=== PATIENT | female | born 1945 | race Two or more races ===

== ENCOUNTER 2024-04-23 18:05 | Emergency (ER) | payer MEDICARE, MEDICAID ==
[~2024-04-23] VITALS: Ht 162.6 cm; Wt 56.1 kg
[2024-04-23 18:23] VITALS: BP 131/52; PULSE 101; RESP 15; TEMP 97.5; O2SAT 94
--- NOTE | 2024-04-23 18:51 | ED.PDOC ---
GI ASSESSMENT HPI Comments * 78 y/o F is [id number] daughter for c/o non-radiating periumbilical abdominal pain, nausea, vomiting, and diarrhea, today * Pain is reported to have been ongoing, intermittently, for 1 month. * Patient also reports on having diarrhea 3 times a day for the past 4 days, which she describes it as being "yellow" in appearance. * Today, patient states on pain worsening, with additional onset of nausea and vomiting. * She describes vomitus as being "watery" in appearance. Vitals: Temperature: 97.5F Respiratory rate: 15 SpO2: 94% Pulse rate: 101 Blood pressure: 131/52 PMHx: HTN, HLD, gastritis, levoscoliosis, benign mass in breast PSHx: hysterectomy, bunion removal surgery HPI: Poor Historian. 78-year-old female presents to emergency department for evaluation of one month history periumbilical pain that is intermittent nonradiating in nature. Pain got worse today and is constant and is associated for the 1st time with nausea and vomiting nonbilious nonbloody. She also has been having few day history of yellow color diarrhea. Denies any other acute symptoms. REVIEW OF SYSTEMS: CONSTITUTIONAL: Denies acute: fever, diaphoresis, chills, HEAD: Denies acute: headache, photophobia Eyes: Denies acute: Double vision, vision loss, eye pain, eye discharge. EARS: Denies acute: tinnitus, hearing loss, ear discharge, ear pain, THROAT: Denies acute: sore throat, swelling, difficulty swallowing , pain with swallowing, change in voice. NECK: Denies acute: neck pain, neck swelling, stiff neck. HEART: Denies acute : chest pain, palpitations, LUNGS: Denies acute: SOB, wheezing, cough, hemoptysis ABDOMEN: Denies acute: melena , hematemesis, hematochezia SKIN: Denies acute: rash, redness, lesions, itchiness. EXTREMITIES: Denies acute: calf pain, numbness, tingling, weakness, denies pain in extremity. Denies acute: Low back pain. Neuro: Denies acute: focal neurological deficit, motor or sensory focal neurological deficit, tremors, seizure like activity, confusion, dizziness, change in mental status, loss of bowel or bladder function, cauda equina like symptoms. : Denies acute: dysuria, hematuria, flank pain, increase in urinary frequency. PSYCH: Denies acute: hallucination, suicidal ideation, homicidal ideation. FEMALE: Denies acute: abnormal vaginal bleeding, foul odor, unusual discharge. PHYSICAL EXAM: General: no acute distress, awake and alert. Head: normocephalic, atraumatic. Neck: supple, trachea is midline, no swelling. Throat: Normal phonation. Eyes:, no erythema, no purulent discharge, no proptosis, no icterus. Heart: regular rate, regular rhythm, no significant murmur appreciated. Lungs: no apparent respiratory distress, Able to speak in full sentences. No wheezing, no rhonchi, no crackles. No stridors Clear to auscultation bilaterally. Abdomen: Periumbilical tender to palpation, non distended, soft, no guarding, no rebound, + bowel sounds. No lower quadrant tenderness to palpation. Neuro: Awake, Alert, oriented to name, self, situation, follows commands GCS=15. Speech is normal. Skin: no petechia, no purpura, no cyanosis, non-pale, not jaundice. Lower extremities: --no - Pitting edema no deformity, no focal swelling, no calf TTP. Makes eye contact. moves all four extremities. Face: no apparent facial droop. Ambulating in the ED independently. ED COURSE: Chief Complaint: Abdominal Pain Time Seen by MD: 18:40 Reviewed Notes: Nurses Notes, Medications, Allergies Allergies: Coded Allergies: NO KNOWN ALLERGIES (Unverified , 04/23/24) Information Source: Patient, Relative (Child) Mode of Arrival: Ambulatory Timing: Months Prehospital treatment: None Was a procedure done? Was a procedure done?: No GI differential Dx Differential Diagnosis: Other (DDX include Diverticulitis, colitis, gastroenteritis, acute abdomen, SBO, enteritis, constipation, volvulus, appendicitis, Gallbladder disease, choledocolithiasis, ascending cholangitis, pancreatitis, intraAbdominal mass/neoplasm, hepatitis, UTI, pylonephritis, kidney stone, aneurysm, dissection, Inflammatory bowel disease, gastroparesis, ischemic bowel, ovarian torsion, ovarian cyst/mass, tubo-ovarian abscess, PID, STD.) X-Ray, Labs, Meds, VS Vital Signs Date Time Temp Pulse Resp B/P (MAP) Pulse Ox O2 Delivery O2 Flow Rate FiO2 04/23/24 18:23 97.5 101 15 131/52 (78) 94 97.5 Lab Test 04/23/24 21:56 04/23/24 19:49 04/23/24 18:45 Range/Units Troponin I High Sensitivity 5 5 5 </=34 ng/L White Blood Count 9.7 4.4-10.8 10^3/uL Red Blood Count 4.77 4.0-5.20 10^6/uL Hemoglobin 14.4 12.2-16.2 g/dL Hematocrit 43.5 36.0-46.0 % Mean Corpuscular Volume 91.2 80.0-100.0 fL Mean Corpuscular Hemoglobin 30.2 28.0-32.0 pg Mean Corpuscular Hemoglobin Concent 33.1 32.0-36.0 g/dL Red Cell Distribution Width 14.7 H 11.8-14.3 % Platelet Count 265 140-450 10^3/uL Mean Platelet Volume 9.9 6.9-10.8 fL Neutrophils (%) (Auto) 56.2 37.0-80.0 % Lymphocytes (%) (Auto) 32.9 10.0-50.0 % Monocytes (%) (Auto) 8.3 0.0-12.0 % Eosinophils (%) (Auto) 1.8 0.0-7.0 % Basophils (%) (Auto) 0.8 0.0-2.0 % Neutrophils # (Auto) 5.4 1.6-8.6 10 ^3/uL Lymphocytes # (Auto) 3.2 0.4-5.4 10 ^3/uL Monocytes # (Auto) 0.8 0-1.3 10 ^3/uL Eosinophils # (Auto) 0.2 0-0.8 10 ^3/uL Basophils # (Auto) 0.1 0-0.2 10 ^3/uL Nucleated Red Blood Cells 0.1 % Sodium Level 145 136-145 mmol/L Potassium Level 5.0 3.5-5.1 mmol/L Chloride Level 110 H 98-107 mmol/L Carbon Dioxide Level 28 20-31 mmol/L Anion Gap 7 5-15 Blood Urea Nitrogen 18 9-23 mg/dL Creatinine 0.94 0.550-1.02 mg/dL Glomerular Filtration Rate Calc 62 >90 mL/min BUN/Creatinine Ratio 19.1 10.0-20.0 Serum Glucose 113 H 74-106 mg/dL Lactic Acid Level 1.6 0.4-2.0 mmol/L Calcium Level 10.7 H 8.7-10.4 mg/dL Total Bilirubin 0.5 0.2-1.0 mg/dL Aspartate Amino Transferase (AST) 13 13-40 U/L Alanine Aminotransferase (ALT) 16 7-40 U/L Alkaline Phosphatase 143 H 46-116 U/L Total Protein 7.1 5.7-8.2 g/dL Albumin 4.6 3.2-4.8 g/dL Lipase 33 12-53 U/L [place] [address] Ph: [phone] DIAGNOSTIC IMAGING Diagnostic Imaging Report : [id number] Signed PATIENT: CHASE COOK ACCT: [id number] UNIT: [id number] : 1945 LOC: ER ROOM / BED: / AGE / SEX: 78 / F ADM STATUS: REG ER SERVICE 07 ORDERING PHYSICIAN: HAROON LEHMAN DO PROCEDURE(s): ABPL - CT AB PEL WO CON-NO ORAL OR IV REASON: abd pain ORDER NUMBER(s): [id number], ACCESSION NUMBER(s): [id number] Procedure: CT CT AB PEL WO CON-NO ORAL OR IV 04/23/2024 06:09 PM Indication: abd pain Comparison Study: None Technique: Axial images were obtained and reformatted in coronal and sagittal planes. All CT scans at this medical facility are performed using dose modulation techniques as appropriate to a performed exam including the following: Automated exposure control was utilized; adjustment of the MA and/or KV according to patient size; and use of iterative reconstruction technique. CT Dose: CTDI volume is 5.12 mGy. Dose-length product is 272.47 mGy*cm FINDINGS: Lower Chest: Unremarkable. Hepatobiliary: Slightly nodular liver contour. Spleen: Unremarkable. Pancreas: Unremarkable. Adrenal Glands: Unremarkable. tract: The kidneys are normal in size bilaterally without hydronephrosis. Several subcentimeter nonobstructing bilateral renal calculi are seen measuring up to 4 mm. The urinary bladder is unremarkable. GI tract: The stomach is grossly normal in appearance. Nondistended fluid filled small bowel loops are noted in the lower abdomen. No transition point seen. The large bowel is unremarkable. The appendix is not visualized. No inflammatory change is noted in the right lower quadrant. Lymphatics: No mesenteric, retroperitoneal or periportal lymphadenopathy. Vasculature: The abdominal aorta is normal in caliber. Diffuse calcified plaque formation is noted. Pelvic Organs: Unremarkable Bones/soft tissues: No acute abnormality. Degenerative changes of the lumbar spine noted. Small fat-containing umbilical hernia. Other: None. IMPRESSION: 1. Nondistended fluid-filled small bowel loops in the lower abdomen without transition point likely reflecting ileus or enteritis. No evidence of perforation. No signs of colitis. 2. Subcentimeter nonobstructing bilateral renal calculi. 3. Cirrhotic liver morphology. ATED BY: JESSA AZUL MD DICTATED DATE/TIME: 04/23/241909 SIGNED BY: JESSA AZUL MD SIGNED DATE/TIME: 04/23/241909 CC: Time of 1ST Reevaluation: 18:40 Reevaluation 1ST: Unchanged Patient Education/Counseling: Diagnosis, Treatment Family Education/Counseling: Other Comments Patient presented with the above HPI. Abdominal pain workup was initiated. patient was found with the above mentioned diagnosis. the following medications were ordered: please refer to order lists of meds and tests obtained by myself Dr. Lehman. Patient ED course and VS have been stabilized. Patient has been observed in the ED adequate length of time to insure improvement/stability. Escalation of care considered: Consideration of escalation to observation or admission Patient decided to leave against medical advice. UA is still pending. Patient did not wait even to receive any of the medications that were ordered for her in the ED course. All the reports of any imaging studies that were ordered by myself were reviewed by myself. Departure 1 Departure Time of Disposition: 01:15 Impression: Primary Impression: Abdominal pain Additional Impressions: Nausea vomiting and diarrhea Liver cirrhosis Left against medical advice Disposition: 07 LEFT AGAINST MEDICAL ADVICE Condition: Stable Additional Instructions: You are leaving against medical advice. Please return to the emergency department if you change your mind. Seek medical attention WILLI. Below is a copy of your CT scan report to follow up with your doctor. [address] [address] Ph: [phone] DIAGNOSTIC IMAGING Diagnostic Imaging Report : [id number] Signed PATIENT: CHASE COOK ACCT: [id number] UNIT: [id number] : 1945 LOC: ER ROOM / BED: / AGE / SEX: 78 / F ADM STATUS: REG ER SERVICE 07 ORDERING PHYSICIAN: HAROON LEHMAN DO PROCEDURE(s): ABPL - CT AB PEL WO CON-NO ORAL OR IV REASON: abd pain ORDER NUMBER(s): [id number], ACCESSION NUMBER(s): [id number] Procedure: CT CT AB PEL WO CON-NO ORAL OR IV 04/23/2024 06:09 PM Indication: abd pain Comparison Study: None Technique: Axial images were obtained and reformatted in coronal and sagittal planes. All CT scans at this medical facility are performed using dose modulation techniques as appropriate to a performed exam including the following: Automated exposure control was utilized; adjustment of the MA and/or KV according to patient size; and use of iterative reconstruction technique. CT Dose: CTDI volume is 5.12 mGy. Dose-length product is 272.47 mGy*cm FINDINGS: Lower Chest: Unremarkable. Hepatobiliary: Slightly nodular liver contour. Spleen: Unremarkable. Pancreas: Unremarkable. Adrenal Glands: Unremarkable. tract: The kidneys are normal in size bilaterally without hydronephrosis. Several subcentimeter nonobstructing bilateral renal calculi are seen measuring up to 4 mm. The urinary bladder is unremarkable. GI tract: The stomach is grossly normal in appearance. Nondistended fluid filled small bowel loops are noted in the lower abdomen. No transition point seen. The large bowel is unremarkable. The appendix is not visualized. No inflammatory change is noted in the right lower quadrant. Lymphatics: No mesenteric, retroperitoneal or periportal lymphadenopathy. Vasculature: The abdominal aorta is normal in caliber. Diffuse calcified plaque formation is noted. Pelvic Organs: Unremarkable Bones/soft tissues: No acute abnormality. Degenerative changes of the lumbar spine noted. Small fat-containing umbilical hernia. Other: None. IMPRESSION: 1. Nondistended fluid-filled small bowel loops in the lower abdomen without transition point likely reflecting ileus or enteritis. No evidence of perforation. No signs of colitis. 2. Subcentimeter nonobstructing bilateral renal calculi. 3. Cirrhotic liver morphology. ATED BY: JESSA AZUL MD DICTATED DATE/TIME: 04/23/241909 SIGNED BY: JESSA AZUL MD SIGNED DATE/TIME: 04/23/241909 CC: Discharged With: Self, Relative Critical Care Note Critical Care Time?: No Stability Stability form required: No I personally scribed for HAROON LEHMAN DO ([email or web address]) on 04/23/24 at 18:51. Electronically submitted by Moshe Avila ([email or web address]). I personally scribed for HAROON LEHMAN DO ([email or web address]) on 04/23/24 at 19:23. Electronically submitted by Moshe Avila ([email or web address]). HAROON LEHMAN DO Apr 23, 2024 18:51
[2024-04-23 19:00] LABS: Basophils # (auto) 0.1 10 ^3/uL (0-0.2); Basophils % (auto) 0.8 % (0.0-2.0); Eosinophils # (auto) 0.2 10 ^3/uL (0-0.8); Eosinophils % (auto) 1.8 % (0.0-7.0); Hematocrit 43.5 % (36.0-46.0); Hemoglobin 14.4 g/dL (12.2-16.2); Lymphocytes # (auto) 3.2 10 ^3/uL (0.4-5.4); Lymphocytes % (auto) 32.9 % (10.0-50.0); Mean Corpuscular Hemoglobin 30.2 pg (28.0-32.0); Mean Corpuscular Hgb Conc. 33.1 g/dL (32.0-36.0); Mean Corpuscular Volume 91.2 fL (80.0-100.0); Monocytes # (auto) 0.8 10 ^3/uL (0-1.3); Monocytes % (auto) 8.3 % (0.0-12.0); Neutrophils # (auto) 5.4 10 ^3/uL (1.6-8.6); Neutrophils % (auto) 56.2 % (37.0-80.0); Nucleated Red Blood Cells % 0.1 %; Platelet Count (auto) 265 10^3/uL (140-450); Red Blood Cells 4.77 10^6/uL (4.0-5.20); Red Cell Distribution Width 14.7 % (11.8-14.3); White Blood Cell 9.7 10^3/uL (4.4-10.8)
--- NOTE | 2024-04-23 19:12 | DVH ---
Procedure: CT CT AB PEL WO CON-NO ORAL OR IV 04/23/2024 06:09 PM Indication: abd pain Comparison Study: None Technique: Axial images were obtained and reformatted in coronal and sagittal planes. All CT scans at this medical facility are performed using dose modulation techniques as appropriate to a performed e xam including the following: Automated exposure control was utilized; adjustment of the MA and/or KV according to patient size; and use of iterative reconstruction technique. CT Dose: CTDI volume is 5.1 2 mGy. Dose-length product is 272.47 mGy*cm FINDINGS: Lower Chest: Unremarkable. Hepatobiliary: Slightly nodular liver contour. Spleen: Unremarkable. Pancreas: Unremarkable. Adrenal Glands: Unremarkable. tract: The kidneys are normal in size bilaterally without hydronephrosis. Several subcentimeter no nobstructing bilateral renal calculi are seen measuring up to 4 mm. The urinary bladder is unremarkab le. GI tract: The stomach is grossly normal in appearance. Nondistended fluid filled small bowel loops ar e noted in the lower abdomen. No transition point seen. The large bowel is unremarkable. The append ix is not visualized. No inflammatory change is noted in the right lower quadrant. Lymphatics: No mesenteric, retroperitoneal or periportal lymphadenopathy. Vasculature: The abdominal aorta is normal in caliber. Diffuse calcified plaque formation is noted. Pelvic Organs: Unremarkable Bones/soft tissues: No acute abnormality. Degenerative changes of the lumbar spine noted. Small fat-c ontaining umbilical hernia. Other: None. IMPRESSION: 1. Nondistended fluid-filled small bowel loops in the lower abdomen without transition point likely r eflecting ileus or enteritis. No evidence of perforation. No signs of colitis. 2. Subcentimeter nonobstructing bilateral renal calculi. 3. Cirrhotic liver morphology.
[2024-04-23 19:15] LABS: Alanine Aminotransferase 16 U/L (7-40); Albumin 4.6 g/dL (3.2-4.8); Anion Gap 7 (5-15); Aspartate Aminotransferase 13 U/L (13-40); BUN/Creatinine Ratio 19.1 (10.0-20.0); Blood Urea Nitrogen 18 mg/dL (9-23); Carbon Dioxide 28 mmol/L (20-31); Lipase 33 U/L (12-53); Sodium 145 mmol/L (136-145); Total Protein 7.1 g/dL (5.7-8.2)
[2024-04-23 19:16] LABS: Bilirubin, Total 0.5 mg/dL (0.2-1.0)
[2024-04-23 19:24] LABS: Alkaline Phosphatase 143 U/L (46-116); Calcium 10.7 mg/dL (8.7-10.4); Chloride 110 mmol/L (98-107); Glucose 113 mg/dL (74-106)
[2024-04-23] MEDS ORDERED: ONDANSETRON HCL 4 MG/2 ML VIAL IV ONE (20:15)
[2024-04-23] MEDS ORDERED: SODIUM CHLORIDE 0.9% 1,000 ML IV ONE (20:15)
== END 2024-04-24 01:20 | disposition left against medical advice (07) ==
LOC: ER 18:05
DX: K74.60 Unspecified cirrhosis of liver (principal); R10.33 Periumbilical pain; E78.5 Hyperlipidemia, unspecified; I10 Essential (primary) hypertension; Z87.19 Personal history of other diseases of the digestive system
CPT/HCPCS: 36415; 74176; 80053; 83605; 83690; 84484; 85025

== ENCOUNTER 2024-05-21 09:42 | Emergency (ER) | payer OTHER, MEDICAID ==
[~2024-05-21] VITALS: Ht 160 cm; Wt 60.3 kg
--- NOTE | 2024-05-21 09:52 | ECG ---
[facility] Test Date: 2024-05-21 Test Time: 09:48:05 Pat Name: CHASE COOK Department: ED Room: Gender: F Breakdown Worker: [id number] : 1945 Requested By: IGOR MALAGON Order Number: [id number] Reading MD: Nolberto Coy Measurements Intervals [place] Rate: 75 P: 64 ND: 172 QRS: 21 QRSD: 85 T: 83 QT: 413 QTc: 462 Interpretive Statements Sinus rhythm Multiple ventricular premature complexes Abnormal R-wave progression, early transition Nonspecific T abnormalities, lateral leads Baseline wander in lead(s) I,II,III,aVR,aVF Electronically Signed On 05-23-2024 21:00:19 PDT by Nolberto Coy Please click the below link to view image of tracing.
--- NOTE | 2024-05-21 10:07 | ED.PDOC ---
GI ASSESSMENT HPI Comments 78 y.o female presents to the ED via EMS for a chief complaint of diffused abdominal pain associated with nausea and vomiting only after eating x 2 months. Patient reports multiple visits to hospitals and PCP's office for complaint but states all she gets is medication which does not relieve pain. Patient reports pain is constant, has not improved nor worsened and has no alleviating factors. Per EMS, daughter on scene reported patient has decreased appetite for the past 3 days, concerning her prompting to call 911 today. No diarrhea, fever, chills, rectal bleeding, dysuria or hematuria. Chief Complaint: Abdominal Pain Time Seen by MD: 09:50 Primary Care Provider: unknown Reviewed Notes: Nurses Notes, Senior Java Architect Notes, Medications, Allergies Allergies: Coded Allergies: Cephalexin (Verified Allergy, Unknown, 05/21/24) Hydrocodone (Verified Allergy, Unknown, 05/21/24) Information Source: Patient, Emergency Med Personnel Mode of Arrival: EMS Timing: Months (2) Duration: Since onset Quality: Aching Vomitus: Food Particles Stool: Normal Severity: Moderate Recent: None Recent Hx of: None Pain Location: Diffuse Modifying Factors: Nothing Associated sign and symptoms: Nausea, Vomiting, Abdominal Pain Past Medical History PAST MEDICAL HISTORY: Liver Surgical History: Denies all surgeries PRODUCTION AIDE History: No Pertinent PRODUCTION AIDE History Family History Family History: Reviewed,noncontributory to illness Social History Smoker: Cigarettes Alcohol: Denies ETOH Use Drugs: Denies Drug Use Lives In: Home Constitutional: denies: chills, diaphoresis, fatigue, fever, malaise, sweats, weakness, others EENTM: denies: blurred vision, double vision, ear bleeding, ear discharge, ear drainage, ear pain, ear ringing, eye pain, eye redness, hearing loss, mouth pain, mouth swelling, nasal discharge, nose bleeding, nose congestion, nose pain, photophobia, tearing, throat pain, throat swelling, voice changes, others Respiratory: denies: cough, hemoptysis, orthopnea, SOB at rest, shortness of breath, SOB with excertion, stridor, wheezing, others Cardiovascular: denies: chest pain, dizzy spells, diaphoresis, Dyspnea on exertion, edema, irregular heart beat, left arm pain, lightheadedness, palpitations, PND, syncope, others Gastrointestinal: reports: abdominal pain, nausea, poor appetite, vomiting; denies: abdomen distended, blood streaked bowels, constipated, diarrhea, dysphagia, difficulty swallowing, hematemesis, melena, poor fluid intake, rectal bleeding, rectal pain, others Genitourinary: denies: abnormal vagina bleeding, burning, dyspareunia, dysuria, flank pain, frequency, hematuria, incontinence, pain, , vagina discharge, urgency, others Neurological: denies: dizziness, fainting, headache, left sided numbness, left sided weakness, numbness, paresthesia, pre-existing deficit, right sided numbne ss, right sided weakness, seizure, speech problems, tingling, tremors, weakness, others Musculoskeletal: denies: back pain, gout, joint pain, joint swelling, muscle pain, muscle stiffness, neck pain, others Integumetry: denies: bruises, change in color, change in hair/nails, dryness, laceration, lesions, lumps, rash, wounds, others Allergic/Immunocompromised: denies: Difficulty Healing, Frequent Infections, Hives, Itching, others Hematologic/Lymphatic: denies: anemia, blood clots, easy bleeding, easy bruising, swollen glands, others Endocrine: denies: excessive hunger, excessive sweating, excessive thirst, excessive urination, flushing, intolerance to cold, intolerance to heat, unexplained weight gain, unexplained weight loss, others Psychiatric: denies: anxiety, bipolar disorder, depression, hopeless, panic disorder, schizophrenia, sleepless, suicidal, others All Other Systems: Reviewed and Negative Physical Exam General Appearance: No Apparent Distress, Normal HEENT: NOT DONE Neck: Normal Inspection Respiratory: No Respiratory Distress, Normal Breath Sounds Cardiovascular: Normal Peripheral Pulses, Regular Rate/Rhythm Breast Exam: Deferred Gastrointestinal: Soft Genitalia: Deferred Pelvic: Deferred Rectal: Deferred Extremities: Normal inspection Neurologic: Alert, Normal Affect, Normal Mood Cerebellar Function: Normal Reflexes: NOT DONE Skin: Dry, Normal Color Lymphatic: NOT DONE Was a procedure done? Was a procedure done?: No GI differential Dx Differential Diagnosis: Esophagitis, Gastritis/PUD, Gastroenteritis, Inflammatory BD, Pancreatitis X-Ray, Labs, Meds, VS Vital Signs Date Time Temp Pulse Resp B/P (MAP) Pulse Ox O2 Delivery O2 Flow Rate FiO2 05/21/24 09:52 98.4 78 16 143/56 (85) 95 98.4 05/21/24 09:48 75 Time of 1ST Reevaluation: 10:02 Reevaluation 1ST: Unchanged Patient Education/Counseling: Diagnosis, Treatment, Prognosis Family Education/Counseling: No Family Present Critical Care Note Critical Care Time?: No Stability Stability form required: No I personally scribed for IGOR MALAGON MD ([email or web address]) on 05/21/24 at 10:07. Electronically submitted by Colleen Wells ([email or web address]). IGOR MALAGON MD May 21, 2024 10:07
[2024-05-21 10:26] LABS: Basophils # (auto) 0.1 10 ^3/uL (0-0.2); Basophils % (auto) 0.7 % (0.0-2.0); Eosinophils # (auto) 0.2 10 ^3/uL (0-0.8); Eosinophils % (auto) 2.1 % (0.0-7.0); Hematocrit 40.7 % (36.0-46.0); Hemoglobin 13.6 g/dL (12.2-16.2); Lymphocytes % (auto) 23.4 % (10.0-50.0); Mean Corpuscular Hemoglobin 30.4 pg (28.0-32.0); Mean Corpuscular Hgb Conc. 33.3 g/dL (32.0-36.0); Mean Corpuscular Volume 91.3 fL (80.0-100.0); Monocytes # (auto) 0.7 10 ^3/uL (0-1.3); Monocytes % (auto) 7.8 % (0.0-12.0); Neutrophils # (auto) 5.7 10 ^3/uL (1.6-8.6); Nucleated Red Blood Cells % 0.1 %; Platelet Count (auto) 300 10^3/uL (140-450); Red Blood Cells 4.46 10^6/uL (4.0-5.20); Red Cell Distribution Width 14.6 % (11.8-14.3); White Blood Cell 8.7 10^3/uL (4.4-10.8)
[2024-05-21 10:31] LABS: Sodium 140 mmol/L (136-145)
[2024-05-21 10:32] LABS: Anion Gap 8 (5-15); Carbon Dioxide 25 mmol/L (20-31)
[2024-05-21 10:33] LABS: Calcium 9.8 mg/dL (8.7-10.4)
[2024-05-21 10:37] LABS: BUN/Creatinine Ratio 18.8 (10.0-20.0); Blood Urea Nitrogen 13 mg/dL (9-23)
[2024-05-21 10:38] LABS: Chloride 107 mmol/L (98-107); Glucose 113 mg/dL (74-106)
[2024-05-21] MEDS: IOHEXOL 300 MG/ML 100ML BOTTLE IJ ONE (12:32)
[2024-05-21 13:23] VITALS: BP 100/62; PULSE 74; RESP 14; TEMP 98.8; O2SAT 93
== END 2024-05-21 13:19 | disposition left against medical advice (07) ==
LOC: EDBD 09:42 → ER 09:42
DX: R10.84 Generalized abdominal pain (principal); R11.2 Nausea with vomiting, unspecified; F17.210 Nicotine dependence, cigarettes, uncomplicated; Z88.5 Allergy status to narcotic agent; Z88.1 Allergy status to other antibiotic agents; Z79.899 Other long term (current) drug therapy
CPT/HCPCS: 36415; 80048; 82947; 84484; 85025; 93005; 99284; Q9967; 82962

== ENCOUNTER 2024-08-06 14:00 | Inpatient (IN) | payer OTHER, MEDICAID ==
[~2024-08-06] VITALS: Ht 172.7 cm; Wt 50.8 kg
--- NOTE | 2024-08-06 14:23 | ED.PDOC ---
GI ASSESSMENT HPI Comments 78 y.o female BIB daughter, presents to the ED for a chief complaint of diffused abdominal pain associated with nausea, vomiting and no appetite. Daughter reports patient has had pain for about 7 years, has been seen multiple times at different hospitals and with PCP, states took her to urgent care today but was sent to the ED for further evaluation. Patient states now pain is worse, rating a 10/10 on the pain scale and has not eaten in 2 days. Patient was recently diagnosed with liver cirrhosis. Patient has had nausea and vomiting x2-3 days with no hematemesis. Patient denies any other symptoms or pain. Patient is a tobacco smoker but denies any substance or alcohol use. Time Seen by MD: 14:20 Primary Care Provider: unknown Reviewed Notes: Nurses Notes, Medications, Allergies Allergies: Coded Allergies: Cephalexin (Verified Allergy, Unknown, 05/21/24) Hydrocodone (Verified Allergy, Unknown, 05/21/24) Information Source: Patient, Relative Mode of Arrival: Wheelchair Timing: Came on: Gradually Duration: Since onset Quality: Sharp Vomitus: Soft Stool: Normal Severity: Moderate Recent: None Recent Hx of: None Pain Location: Diffuse Modifying Factors: Nothing Associated sign and symptoms: Nausea, Vomiting, Abdominal Pain Past Medical History PAST MEDICAL HISTORY: High Lipids, HTN, Liver Surgical History (Other): left foot 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 History Family History Family History: Reviewed,noncontributory to illness Social History Smoker: Cigarettes Alcohol: Denies ETOH Use Drugs: Denies Drug Use Lives In: Home Constitutional: denies: chills, diaphoresis, fatigue, fever, malaise, sweats, weakness, others EENTM: denies: blurred vision, double vision, ear bleeding, ear discharge, ear drainage, ear pain, ear ringing, eye pain, eye redness, hearing loss, mouth pain, mouth swelling, nasal discharge, nose bleeding, nose congestion, nose pain, photophobia, tearing, throat pain, throat swelling, voice changes, others Respiratory: denies: cough, hemoptysis, orthopnea, SOB at rest, shortness of breath, SOB with excertion, stridor, wheezing, others Cardiovascular: denies: chest pain, dizzy spells, diaphoresis, Dyspnea on exertion, edema, irregular heart beat, left arm pain, lightheadedness, palpitations, PND, syncope, others Gastrointestinal: reports: abdominal pain, nausea, poor appetite, vomiting; denies: abdomen distended, blood streaked bowels, constipated, diarrhea, dysphagia, difficulty swallowing, hematemesis, melena, poor fluid intake, rectal bleeding, rectal pain, others Genitourinary: denies: abnormal vagina bleeding, burning, dyspareunia, dysuria, flank pain, frequency, hematuria, incontinence, pain, , vagina discharge, urgency, others Neurological: denies: dizziness, fainting, headache, left sided numbness, left sided weakness, numbness, paresthesia, pre-existing deficit, right sided numbness, right sided weakness, seizure, speech problems, tingling, tremors, weakness, others Musculoskeletal: denies: back pain, gout, joint pain, joint swelling, muscle pain, muscle stiffness, neck pain, others Integumetry: denies: bruises, change in color, change in hair/nails, dryness, laceration, lesions, lumps, rash, wounds, others Allergic/Immunocompromised: denies: Difficulty Healing, Frequent Infections, Hives, Itching, others Hematologic/Lymphatic: denies: anemia, blood clots, easy bleeding, easy bruising, swollen glands, others Endocrine: denies: excessive hunger, excessive sweating, excessive thirst, excessive urination, flushing, intolerance to cold, intolerance to heat, unexplained weight gain, unexplained weight loss, others Psychiatric: denies: anxiety, bipolar disorder, depression, hopeless, panic disorder, schizophrenia, sleepless, suicidal, others All Other Systems: Reviewed and Negative Physical Exam General Appearance: Moderate Distress HEENT: Normal ENT Inspection, Pharynx Normal, TMs Normal Neck: Full Range of Motion, Non-Tender, Normal, Normal Inspection Respiratory: Chest Non-Tender, Lungs Clear, No Accessory Muscle Use, No Respiratory Distress, Normal Breath Sounds Cardiovascular: No Edema, No JVD, No Murmur, No Gallop, Normal Peripheral Pulses, Regular Rate/Rhythm Breast Exam: Deferred Gastrointestinal: Diffuse, No Organomegaly, No Pulsatile Mass, Normal Bowel Sounds, Soft, Tenderness Genitalia: Deferred Pelvic: Deferred Rectal: Deferred Extremities: No calf tenderness, Normal capillary refill, Normal inspection, Normal range of motion, Non-tender, No pedal edema Musculoskeletal : Apperance: Normal Neurologic: Alert, yardage caller II-XII nml as Tested, No Motor Deficits, Normal Affect, Normal Mood, No Sensory Deficits Cerebellar Function: Normal Reflexes: Normal Skin: Dry, Normal Color, Warm Lymphatic: No Adenopathy Was a procedure done? Was a procedure done?: No GI differential Dx Differential Diagnosis: Esophagitis, Gastritis/PUD, Gastroenteritis, Esophageal Varicies, Stress Ulcer, Kidney Stone X-Ray, Labs, Meds, VS Vital Signs Date Time Temp Pulse Resp B/P (MAP) Pulse Ox O2 Delivery O2 Flow Rate FiO2 08/06/24 16:01 81 19 109/40 08/06/24 16:01 97.8 81 19 109/40 (63) 98 97.8 08/06/24 15:30 97.8 84 17 121/50 (73) 99 97.8 08/06/24 15:26 84 17 151/50 08/06/24 14:28 98.2 93 16 94/43 (60) 99 98.2 Lab Test 08/06/24 14:56 Range/Units White Blood Count 14.9 H 4.4-10.8 10^3/uL Red Blood Count 4.73 4.0-5.20 10^6/uL Hemoglobin 14.1 12.2-16.2 g/dL Hematocrit 42.0 36.0-46.0 % Mean Corpuscular Volume 88.8 80.0-100.0 fL Mean Corpuscular Hemoglobin 29.8 28.0-32.0 pg Mean Corpuscular Hemoglobin Concent 33.6 32.0-36.0 g/dL Red Cell Distribution Width 15.0 H 11.8-14.3 % Platelet Count 321 140-450 10^3/uL Mean Platelet Volume 9.0 6.9-10.8 fL Neutrophils (%) (Auto) 79.2 37.0-80.0 % Lymphocytes (%) (Auto) 13.0 10.0-50.0 % Monocytes (%) (Auto) 6.9 0.0-12.0 % Eosinophils (%) (Auto) 0.4 0.0-7.0 % Basophils (%) (Auto) 0.5 0.0-2.0 % Neutrophils # (Auto) 11.8 H 1.6-8.6 10 ^3/uL Lymphocytes # (Auto) 1.9 0.4-5.4 10 ^3/uL Monocytes # (Auto) 1.0 0-1.3 10 ^3/uL Eosinophils # (Auto) 0.1 0-0.8 10 ^3/uL Basophils # (Auto) 0.1 0-0.2 10 ^3/uL Nucleated Red Blood Cells 0.0 % Sodium Level 140 136-145 mmol/L Potassium Level 4.3 3.5-5.1 mmol/L Chloride Level 107 98-107 mmol/L Carbon Dioxide Level 23 20-31 mmol/L Anion Gap 10 5-15 Blood Urea Nitrogen 26 H 9-23 mg/dL Creatinine 0.83 0.550-1.02 mg/dL Glomerular Filtration Rate Calc 72 >90 mL/min BUN/Creatinine Ratio 31.3 H 10.0-20.0 Serum Glucose 122 H 74-106 mg/dL Calcium Level 9.6 8.7-10.4 mg/dL Total Bilirubin 0.7 0.2-1.0 mg/dL Aspartate Amino Transferase (AST) 17 13-40 U/L Alanine Aminotransferase (ALT) 9 7-40 U/L Alkaline Phosphatase 131 H 46-116 U/L Total Protein 7.7 5.7-8.2 g/dL Albumin 4.8 3.2-4.8 g/dL Lipase 25 12-53 U/L Current Medications Medications (Trade) Dose Ordered Sig/Gita Route Start Time Stop Time Status Last Admin Ondansetron HCl (Zofran) 4 mg ONCE ONCE IV 08/06/24 14:30 08/06/24 14:31 DC 08/06/24 15:26 Morphine Sulfate 2 mg ONCE ONCE IV 08/06/24 14:30 08/06/24 14:31 DC 08/06/24 15:26 Sodium Chloride 500 ml @ 500 mls/hr Q1H ONCE IVB 08/06/24 14:30 08/06/24 15:29 DC 08/06/24 15:01 Images Reviewed?: Images reviewed and evaluated by me Time of 1ST Reevaluation: 14:23 Reevaluation 1ST: Unchanged Patient Education/Counseling: Diagnosis, Treatment, Prognosis Family Education/Counseling: Diagnosis, Treatment, Prognosis SEPSIS Sepsis Screen Physician Orders Urinalysis (08/06/24 14:20) Ct Ab Pel Wo Con-No Oral Or Iv (08/06/24 14:20) Heplock Iv (08/06/24 14:20) Vital Signs Date Time Temp Pulse Resp B/P (MAP) Pulse Ox O2 Delivery O2 Flow Rate FiO2 08/06/24 16:01 81 19 109/40 08/06/24 16:01 97.8 81 19 109/40 (63) 98 97.8 08/06/24 15:30 97.8 84 17 121/50 (73) 99 97.8 08/06/24 15:26 84 17 151/50 08/06/24 14:28 98.2 93 16 94/43 (60) 99 98.2 Laboratory Tests Test 08/06/24 14:56 White Blood Count 14.9 10^3/uL (4.4-10.8) H Medications Medications Dose Ordered Sig/Gita Route Start Time Stop Time Status Last Admin Dose Admin Morphine Sulfate 2 mg ONCE ONCE IV 08/06/24 14:30 08/06/24 14:31 DC 08/06/24 15:26 Ondansetron HCl 4 mg ONCE ONCE IV 08/06/24 14:30 08/06/24 14:31 DC 08/06/24 15:26 Sodium Chloride 500 ml @ 500 mls/hr Q1H ONCE IVB 08/06/24 14:30 08/06/24 15:29 DC 08/06/24 15:01 Departure 1 Departure Time of Disposition: 19:13 Impression: Primary Impression: Intractable abdominal pain Disposition: 09 ADMITTED INPATIENT Admit to: Med Surg Condition: Fair Critical Care Note Critical Care Time?: No Stability Stability form required: Yes Unstable for transfer: ED Physician Assesment (Clinical assesment) I personally scribed for JONATHAN ECHEVARRIA MD ([email or web address]) on 08/06/24 at 14:23. Electronically submitted by Colleen Wells ([facility]). JONATHAN ECHEVARRIA MD Aug 06, 2024 14:23
[2024-08-06] MEDS: SODIUM CHLORIDE 0.9% 500 ML IVB ONE (15:01)
[2024-08-06 15:11] LABS: Hematocrit 42.0 % (36.0-46.0); Hemoglobin 14.1 g/dL (12.2-16.2); Mean Corpuscular Hemoglobin 29.8 pg (28.0-32.0); Mean Corpuscular Volume 88.8 fL (80.0-100.0); Nucleated Red Blood Cells % 0.0 %
[2024-08-06] MEDS: ONDANSETRON HCL 4 MG/2 ML VIAL IV ONE (15:26)
[2024-08-06] MEDS: MORPHINE SULFATE 4 MG/ML SYR/VIAL IV ONE (15:26)
[2024-08-06 15:27] LABS: Albumin 4.8 g/dL (3.2-4.8); Anion Gap 10 (5-15); BUN/Creatinine Ratio 31.3 (10.0-20.0); Calcium 9.6 mg/dL (8.7-10.4); Carbon Dioxide 23 mmol/L (20-31); Chloride 107 mmol/L (98-107); Lipase 25 U/L (12-53); Potassium 4.3 mmol/L (3.5-5.1); Sodium 140 mmol/L (136-145); Total Protein 7.7 g/dL (5.7-8.2)
[2024-08-06 15:28] LABS: Bilirubin, Total 0.7 mg/dL (0.2-1.0)
[2024-08-06 15:41] LABS: Alanine Aminotransferase 9 U/L (7-40); Alkaline Phosphatase 131 U/L (46-116); Blood Urea Nitrogen 26 mg/dL (9-23); Glucose 122 mg/dL (74-106)
--- NOTE | 2024-08-06 16:24 | DVH ---
EXAM: CT Abdomen and Pelvis Without Intravenous Contrast CLINICAL INDICATION: pain TECHNIQUE: Axial computed tomography images of the abdomen and pelvis without intravenous contrast. This CT exam was performed using one or more of the following dose reduction techniques: automated exposure control, adjustment of the mA and/or kV according to patient size, and/or use of iterative r econstruction technique. CONTRAST: RADIATION DOSE: CTDIvol = 5.02 mGy, DLP = 260.34 mGy-cm COMPARISON: No relevant prior studies available. FINDINGS: LUNG BASES: Partially visualized lung emphysema/ COPD. No consolidation. MEDIASTINUM: Small esophageal hiatal hernia. ABDOMEN: LIVER: Fatty infiltration of the liver. GALLBLADDER AND BILE DUCTS: Unremarkable. No calcified stones. No ductal dilation. PANCREAS: Unremarkable. No ductal dilation. SPLEEN: Unremarkable. No splenomegaly. ADRENALS: Unremarkable. No mass. KIDNEYS AND URETERS: Right renal pelvic calculi, largest measuring up to 5 mm without obstruction. No stones within either kidney. No hydronephrosis. STOMACH AND BOWEL: Unremarkable. No obstruction. No mucosal thickening. PELVIS: APPENDIX: No findings to suggest acute appendicitis. BLADDER: Unremarkable. No stones. REPRODUCTIVE: Unremarkable as visualized. ABDOMEN and PELVIS: INTRAPERITONEAL SPACE: Unremarkable. No free air. No significant fluid collection. BONES/JOINTS: No acute fracture. No dislocation. SOFT TISSUES: Unremarkable. VASCULATURE: Scattered calcified atherosclerotic disease of aorta. No abdominal aortic aneurysm. LYMPH NODES: Unremarkable. No enlarged lymph nodes. OTHER FINDINGS: Comparison CT CT AB PEL WO CON-NO ORAL OR IV on DOS: 04/23/24. . IMPRESSION: 1. Small esophageal hiatal hernia. 2. Right renal pelvic calculi, largest measuring up to 5 mm without obstruction. 3. No obstructive uropathy. HS:Y
[2024-08-06] MEDS ORDERED: ONDANSETRON HCL 4 MG/2 ML VIAL IV PRN (19:30)
[2024-08-06] MEDS ORDERED: ACETAMINOPHEN 325 MG TAB PO PRN (19:30)
[2024-08-06] MEDS ORDERED: MORPHINE SULFATE INJ 2 MG/ml SYRG IV PRN ×2 (19:30→22:30)
[2024-08-06] MEDS: SODIUM CHLORIDE 0.9% 1,000 ML IV SCH (20:07)
[2024-08-06] MEDS: PANTOPRAZOLE 40 MG/10 ML VIAL INJ IV ONE (20:28)
[2024-08-06] MEDS: cefTRIAXone 1GM/50ML D5W 50 ML IV ONE (21:23)
[2024-08-06] MEDS ORDERED: NITROGLYCERIN 0.4 MG SL TAB SL PRN (22:30)
--- NOTE | 2024-08-06 22:33 | DVHHP2 ---
History of Present Illness Reason for Visit: Intractable abdominal pain History of Present Illness Patient is a 78-year-old female with past medical history of liver disease, hypertension, and hyperlipidemia who presented to [facility] ED with complaint of diffuse abdominal pain. Patient reports that she has been ex periencing abdominal pain rating 10/10 numeric scale, associated with nausea, vomiting, loss of appetite, getting worse today that prompted this visit. Patient was seen and evaluated in the ED, laboratory data shows WBC 14.9, platelets 321, sodium 140, potassium 4.3, BUN 26, creatinine 0.83, glucose 122, calcium 9.6, lipase 25, blood pressure 109/40, heart rate 82, temperature 97.8 F, O2 saturation 98% on room air. Abdomen/pelvis CT revealing small esophageal hiatal hernia, right renal pelvic calculi, largest measuring up to 5 mm without obstruction, no obstructive uropathy. Patient was started on IV antibiotic regimen Rocephin, given morphine sulfate 2 mg IV x1, please see medication orders section in the computer. On my assessment, patient denies chest pain, no headache, no dizziness, no shortness of breaths, no diarrhea, no nausea, or vomiting at this moment, no fever, no chills. Patient was admitted for further evaluation and medical management. Past Medical History High Lipids, HTN, Liver Past Surgical History Left foot surgery Family History Reviewed, noncontributory to the management of this case. Past Social History The patient lives at home, smokes cigarettes, denies alcohol or illicit drugs abuse. Review of Systems Constitutional: Yes: Weakness; No: Fever, Chills, Sweats, Malaise, Other Eyes: No: Pain, Vision change, Conjunctivae inflammation, Eyelid inflammation, Other, Redness ENT: No: Ear pain, Ear discharge, Nose pain, Nose discharge, Nose congestion, Mouth pain, Mouth swelling, Throat pain, Throat swelling, Other Respiratory: No: Cough, Dry, Shortness of breath, SOB with excertion, Wheezing, Hemoptysis, Pleuritic Pain, Sputum, Wheezing, Other Cardiovascular: No: Chest Pain, Palpitations, Orthopnea, Paroxysmal Noc. Dyspnea, Edema, Lt Headedness, Other Gastrointestinal: Nausea, Vomiting, Abdominal Pain, Other (Loss of appetite); No: Diarrhea, Constipation, Melena, Hematochezia Genitourinary: No Dysuria, No Frequency, No Incontinence, No Hematuria, No Retention, No Other Musculoskeletal: No: other, neck pain, shoulder pain, arm pain, back pain, hand pain, leg pain, foot pain Skin: No: Rash, Lesions, Jaundice, Bruising, Other Neurological: No: Weakness, Numbness, Incoordination, Change in speech, Confusion, Seizures, Other Allergies: Coded Allergies: Cephalexin (Verified Allergy, Unknown, 05/21/24) Hydrocodone (Verified Allergy, Unknown, 05/21/24) Medications Current Medications Medications Dose Ordered Sig/Gita Route Start Time Stop Time Status Last Admin Dose Admin Sodium Chloride 1,000 ml @ 60 mls/hr [id number] IV 08/06/24 19:30 Ondansetron HCl 4 mg Q4HP PRN IV 08/06/24 19:30 Docusate Sodium 100 mg BIDPRN PRN PO 08/06/24 19:30 Acetaminophen 650 mg Q6HP PRN PO 08/06/24 19:30 Morphine Sulfate 2 mg Q4HPRN PRN IV 08/06/24 19:30 Pantoprazole Sodium 40 mg DAILY IV 08/07/24 10:00 Ceftriaxone Sodium 50 ml @ 100 mls/hr DAILY@09 IV 08/07/24 09:00 Exam Vital Signs Vital Signs Date Time Temp Pulse Resp B/P (MAP) Pulse Ox O2 Delivery O2 Flow Rate FiO2 08/06/24 20:32 98.4 77 18 137/43 (74) 99 98.4 General Appearance: Alert, Oriented X3, Cooperative, No acute distress HEENT: Atraumatic, PERRLA, EOMI, Mucous membr. moist/pink Respiratory: Normal air movement Cardiovascular: Regular rate, Normal S1, Normal S2, No murmurs Abdominal: Normal bowel sounds, Soft, No hepatospenomegaly, No masses, Other (Reports tenderness) Extremities: No clubbing, No cyanosis, No edema, Normal pulses, No tenderness/swelling Skin: No rashes, No breakdown, No significant lesion Neuro: Normal speech, Normal tone, Sensation intact, Cranial nerves 3-12 NL, Reflexes 2+, Other (Generalized weakness) Psych/Mental Status: Mental status NL, Mood NL Labs/Xrays Labs Test 08/06/24 14:56 Range/Units White Blood Count 14.9 H 4.4-10.8 10^3/uL Red Blood Count 4.73 4.0-5.20 10^6/uL Hemoglobin 14.1 12.2-16.2 g/dL Hematocrit 42.0 36.0-46.0 % Mean Corpuscular Volume 88.8 80.0-100.0 fL Mean Corpuscular Hemoglobin 29.8 28.0-32.0 pg Mean Corpuscular Hemoglobin Concent 33.6 32.0-36.0 g/dL Red Cell Distribution Width 15.0 H 11.8-14.3 % Platelet Count 321 140-450 10^3/uL Mean Platelet Volume 9.0 6.9-10.8 fL Neutrophils (%) (Auto) 79.2 37.0-80.0 % Lymphocytes (%) (Auto) 13.0 10.0-50.0 % Monocytes (%) (Auto) 6.9 0.0-12.0 % Eosinophils (%) (Auto) 0.4 0.0-7.0 % Basophils (%) (Auto) 0.5 0.0-2.0 % Neutrophils # (Auto) 11.8 H 1.6-8.6 10 ^3/uL Lymphocytes # (Auto) 1.9 0.4-5.4 10 ^3/uL Monocytes # (Auto) 1.0 0-1.3 10 ^3/uL Eosinophils # (Auto) 0.1 0-0.8 10 ^3/uL Basophils # (Auto) 0.1 0-0.2 10 ^3/uL Nucleated Red Blood Cells 0.0 % Sodium Level 140 136-145 mmol/L Potassium Level 4.3 3.5-5.1 mmol/L Chloride Level 107 98-107 mmol/L Carbon Dioxide Level 23 20-31 mmol/L Anion Gap 10 5-15 Blood Urea Nitrogen 26 H 9-23 mg/dL Creatinine 0.83 0.550-1.02 mg/dL Glomerular Filtration Rate Calc 72 >90 mL/min BUN/Creatinine Ratio 31.3 H 10.0-20.0 Serum Glucose 122 H 74-106 mg/dL Calcium Level 9.6 8.7-10.4 mg/dL Total Bilirubin 0.7 0.2-1.0 mg/dL Aspartate Amino Transferase (AST) 17 13-40 U/L Alanine Aminotransferase (ALT) 9 7-40 U/L Alkaline Phosphatase 131 H 46-116 U/L Total Protein 7.7 5.7-8.2 g/dL Albumin 4.8 3.2-4.8 g/dL Lipase 25 12-53 U/L PATIENT: CHASE LORAACCT: [id number] UNIT: [id number] : 1945 LOC: ER ROOM / BED: / AGE / SEX: 78 / F ADM STATUS: REG ER SERVICE 1420 ORDERING PHYSICIAN: JONATHAN ECHEVARRIA MD PROCEDURE(s): ABPL - CT AB PEL WO CON-NO ORAL OR IV REASON: pain ORDER NUMBER(s): [id number], ACCESSION NUMBER(s): [id number] EXAM: CT Abdomen and Pelvis Without Intravenous Contrast CLINICAL INDICATION: pain TECHNIQUE: Axial computed tomography images of the abdomen and pelvis without intravenous contrast. This CT exam was performed using one or more of the following dose reduction techniques: automated exposure control, adjustment of the mA and/or kV according to patient size, and/or use of iterative reconstruction technique. CONTRAST: RADIATION DOSE: CTDIvol = 5.02 mGy, DLP = 260.34 mGy-cm COMPARISON: No relevant prior studies available. FINDINGS: LUNG BASES: Partially visualized lung emphysema/COPD. No consolidation. MEDIASTINUM: Small esophageal hiatal hernia. ABDOMEN: LIVER: Fatty infiltration of the liver. GALLBLADDER AND BILE DUCTS: Unremarkable. No calcified stones. No ductal dilation. PANCREAS: Unremarkable. No ductal dilation. SPLEEN: Unremarkable. No splenomegaly. ADRENALS: Unremarkable. No mass. KIDNEYS AND URETERS: Right renal pelvic calculi, largest measuring up to 5 mm without obstruction. No stones within either kidney. No hydronephrosis. STOMACH AND BOWEL: Unremarkable. No obstruction. No mucosal thickening. PELVIS: APPENDIX: No findings to suggest acute appendicitis. BLADDER: Unremarkable. No stones. REPRODUCTIVE: Unremarkable as visualized. ABDOMEN and PELVIS: INTRAPERITONEAL SPACE: Unremarkable. No free air. No significant fluid collection. BONES/JOINTS: No acute fracture. No dislocation. SOFT TISSUES: Unremarkable. VASCULATURE: Scattered calcified atherosclerotic disease of aorta. No abdominal aortic aneurysm. LYMPH NODES: Unremarkable. No enlarged lymph nodes. OTHER FINDINGS: Comparison CT CT AB PEL WO CON-NO ORAL OR IV on DOS: 04/23/24. . IMPRESSION: 1. Small esophageal hiatal hernia. 2. Right renal pelvic calculi, largest measuring up to 5 mm without obstruction. 3. No obstructive uropathy. Assessment/Plan Assessment/Plan Intractable abdominal pain Leukocytosis, unspecified Nausea and vomiting Generalized weakness Plan 1. Admit to med surge unit 2. Breathing treatment 3. Pain control management 4. IV antibiotic management 5. Management of fluids and electrolytes 6. Consultation for hospitalist 7. Diagnostic test abdomen/pelvis CT 8. DVT prophylaxis on SCDs 9. Repeat labs CBC, CMP in a.m. 10. Home medication reviewed and reconciled 11. Continue with current medical management 12. Treatment plan discussed with patient and RN. Patient verbalized understanding. Plan discussed with: Patient, Other (RN) My Orders Orders - YEYO ADAMSON DNP Procedure Category Date Status Time Allergies KEENA 08/06/24 In Process 19:18 Code Status CODE 08/06/24 Transmitted 19:18 Sodium Chloride 0.9% PHA 08/06/24 In Process 19:30 Oxygen Per Hour RT 08/06/24 Transmitted 19:18 Ondansetron Hcl PHA 08/06/24 In Process (Zofran) 19:30 Docusate Sodium PHA 08/06/24 In Process Capsule (Colace 19:30 Complete Blood Count LAB 08/07/24 Verified 04:00 Comprehensive LAB 08/07/24 Verified Metabolic Panel 04:00 Condition: Serious KEENA 08/06/24 In Process 19:18 Acetaminophen Tablet PHA 08/06/24 In Process (Tylenol Tablet) 19:30 Clear Liq Diet DIET 08/07/24 Transmitted Breakfast Bedrest With Bathroom KEENA 08/06/24 In Process Privileg 19:18 Morphine Sulfate PHA 08/06/24 In Process Injection 19:30 Sequential KEENA 08/06/24 In Process Compression Device Pantoprazole PHA 08/07/24 In Process (Protonix) 10:00 Ceftriaxone 1gm/50ml PHA 08/07/24 In Process D5w (Rocephin) 09:00 Problem List: (1) Intractable abdominal pain (2) Leukocytosis, unspecified (3) Nausea and vomiting (4) Generalized weakness Date of Service: Aug 06, 2024 Billing Provider: YEYO ADAMSON DNP Common Visit Codes: [id number] INP/OBS CARE (HIGH) YEYO ADAMSON DNP Aug 06, 2024 22:33
[2024-08-07 00:40] VITALS: PULSE 90; RESP 18; O2SAT 98
[2024-08-07 04:59] LABS: Hematocrit 35.9 % (36.0-46.0); Hemoglobin 12.0 g/dL (12.2-16.2); Mean Corpuscular Hemoglobin 29.6 pg (28.0-32.0); Mean Corpuscular Volume 88.8 fL (80.0-100.0); Nucleated Red Blood Cells % 0.0 %
[2024-08-07 05:19] LABS: Albumin 3.8 g/dL (3.2-4.8); Alkaline Phosphatase 105 U/L (46-116); Anion Gap 8 (5-15); BUN/Creatinine Ratio 34.8 (10.0-20.0); Bilirubin, Total 0.4 mg/dL (0.2-1.0); Calcium 8.8 mg/dL (8.7-10.4); Carbon Dioxide 24 mmol/L (20-31); Glucose 99 mg/dL (74-106); Potassium 4.7 mmol/L (3.5-5.1); Sodium 141 mmol/L (136-145); Total Protein 6.1 g/dL (5.7-8.2)
[2024-08-07 05:28] LABS: Alanine Aminotransferase < 9 U/L (7-40); Blood Urea Nitrogen 24 mg/dL (9-23); Chloride 109 mmol/L (98-107)
[2024-08-07] MEDS: cefTRIAXone 1GM/50ML D5W 50 ML IV SCH (09:11)
[2024-08-07] MEDS: PANTOPRAZOLE 40 MG/10 ML VIAL INJ IV SCH (09:38)
[2024-08-07 13:11] VITALS: BP 106/51; PULSE 69; RESP 18; TEMP 98.2; O2SAT 97
[2024-08-07 14:20] LABS: Urine Protein, UAD Negative (Negative)
[2024-08-07 16:02] VITALS: PULSE 69; RESP 18; O2SAT 97
[2024-08-07] MEDS ORDERED: PANT40T PO (16:02)
[2024-08-07] MEDS ORDERED: SERT-206 PO (16:02)
[2024-08-07] MEDS ORDERED: LISI20TA56 PO (16:02)
[2024-08-07] MEDS ORDERED: OMEP-448 PO (16:02)
[2024-08-07] MEDS ORDERED: ATOR10TA PO (16:02)
[2024-08-07] MEDS ORDERED: ALUMCHW6 PO (16:02)
[2024-08-07 17:15] VITALS: BP 109/52; PULSE 65; RESP 16; TEMP 98.9; O2SAT 96
[2024-08-07] MEDS: DOCUSATE SOD 100 MG CAP PO PRN (17:16)
--- NOTE | 2024-08-07 19:53 | DVHPN2 ---
Subjective Seen in bed with minimal pain Reviewed: H&P, Labs Changes from previous H/P or p: No Changes Eyes: No Pain, No Vision change, No Conjunctivae inflammation, No Eyelid inflammation, No Other, No Redness ENT: No Ear pain, No Ear discharge, No Nose pain, No Nose discharge, No Nose congestion, No Mouth pain, No Mouth swelling, No Throat pain, No Throat swelling, No Other Cardiovascular: No Chest Pain, No Palpitations, No Orthopnea, No Paroxysmal Noc. Dyspnea, No Edema, No Lt Headedness, No Other Respiratory: No Cough, No Dry, No Shortness of breath, No SOB with excertion, No Wheezing, No Hemoptysis, No Pleuritic Pain, No Sputum, No Other Gastrointestinal: Nausea, Vomiting, Abdominal Pain; No Diarrhea, No Constipation, No Melena, No Hematochezia; Other (Loss of appetite) Genitourinary: No Dysuria, No Frequency, No Incontinence, No Hematuria, No Retention, No Other Musculoskeletal: No other, No neck pain, No shoulder pain, No arm pain, No back pain, No hand pain, No leg pain, No foot pain Skin: No Rash, No Lesions, No Jaundice, No Bruising, No Other Objective Vitals Vital Signs Date Time Temp Pulse Resp B/P (MAP) Pulse Ox O2 Delivery O2 Flow Rate FiO2 08/07/24 17:15 98.9 65 16 109/52 (71) 96 98.9 08/07/24 16:02 Room Air* 0 21 Intake/Output Intake and Output 08/07/24 07:00 Intake Total 50 ml Balance 50 ml IV Total 50 ml General Appearance: Alert, Oriented X3 Lungs: Clear to auscultation Cardiovascular: Regular rate, Normal S1, Normal S2 Abdomen: Normal bowel sounds Medications Current Medications Medications Dose Ordered Sig/Gita Route Start Time Stop Time Status Last Admin Dose Admin Sodium Chloride 1,000 ml @ 60 mls/hr [id number] IV 08/06/24 19:30 08/07/24 12:12 60 MLS/HR Ondansetron HCl 4 mg Q4HP PRN IV 08/06/24 19:30 Docusate Sodium 100 mg BIDPRN PRN PO 08/06/24 19:30 08/07/24 17:16 100 MG Acetaminophen 650 mg Q6HP PRN PO 08/06/24 19:30 Morphine Sulfate 2 mg Q4HPRN PRN IV 08/06/24 19:30 Pantoprazole Sodium 40 mg DAILY IV 08/07/24 10:00 08/07/24 09:38 40 MG Ceftriaxone Sodium 50 ml @ 100 mls/hr DAILY@09 IV 08/07/24 09:00 08/07/24 09:11 100 MLS/HR Nitroglycerin 0.4 mg Q5MINP PRN SL 08/06/24 22:30 Morphine Sulfate 2 mg Q30M PRN IV 08/06/24 22:30 Laboratory Results Laboratory Tests 08/07/24 04:16 Chemistry Test 08/07/24 04:16 Albumin 3.8 g/dL (3.2-4.8) Calcium Level 8.8 mg/dL (8.7-10.4) Total Protein 6.1 g/dL (5.7-8.2) LFT Test 08/07/24 04:16 Alanine Aminotransferase (ALT) < 9 U/L (7-40) Alkaline Phosphatase 105 U/L (46-116) Aspartate Amino Transferase (AST) 14 U/L (13-40) Total Bilirubin 0.4 mg/dL (0.2-1.0) Urinalysis Test 08/07/24 13:48 Urine Color Light-yellow (Yellow) Urine Clarity Clear (Clear) Urine pH 5.5 (5.0-9.0) Urine Specific [place] 1.009 (1.001-1.035) Urine Protein Negative (Negative) Urine Ketones Negative (Negative) Urine Blood 1+ /uL (Negative) H Urine Nitrite Negative (Negative) Urine Bilirubin Negative (Negative) Urine Urobilinogen Normal mg/dL (Negative) Urine Leukocyte Esterase 1+ /uL (Negative) Urine RBC 1 /hpf (0 - 4) Urine Microscopic WBC 2 /HPF (0-5) Urine Squamous Epithelial Cells Few /hpf (<5) Urine Bacteria Few /hpf (None Seen) H Urine Mucus Few (None Seen) Urine Glucose Normal mg/dL (Normal) Assessment/Plan Assessment/Plan Intractable abdominal pain sepsis due to UTI hiatal hernia Nausea and vomiting Generalized weakness Continue IV abx urine culture advance diet Plan discussed with: Patient Date of Service: Aug 07, 2024 Billing Provider: MONY REYNA MD Common Visit Codes: [id number] INP/OBS CARE(HIGH) AXEL,MONY J MD Aug 07, 2024 19:53
[2024-08-07 20:00] VITALS: PULSE 62; RESP 16; O2SAT 96
[2024-08-07 21:00] VITALS: BP 115/56; PULSE 68; RESP 18; TEMP 99.4; O2SAT 97
[2024-08-08 01:00] VITALS: BP 100/42; PULSE 66; RESP 18; TEMP 98.3; O2SAT 97
[2024-08-08 05:00] VITALS: BP 96/59; PULSE 70; RESP 16; TEMP 99.1; O2SAT 93
[2024-08-08 08:16] VITALS: PULSE 62; RESP 16; O2SAT 96
[2024-08-08 08:49] VITALS: BP 112/58; PULSE 67; RESP 16; TEMP 97.7; O2SAT 96
[2024-08-08 12:49] VITALS: BP 114/53; PULSE 67; RESP 17; TEMP 97.9; O2SAT 99
[2024-08-08] MEDS ORDERED: CIPR500T4 PO (14:41)
[2024-08-08 15:19] VITALS: BP 112/58; PULSE 67; RESP 16; TEMP 36.6; O2SAT 96
--- NOTE | 2024-08-19 06:35 | DVHDS2 ---
Discharge Summary Date of Admission Aug 06, 2024 at 22:17 Date of Discharge: Aug 08, 2024 Labs/Diagnostic Data: Laboratory Results Test 08/07/24 13:48 08/07/24 04:16 08/06/24 14:56 Urine Color Light-yellow (Yellow) Urine Clarity Clear (Clear) Urine pH 5.5 (5.0-9.0) Urine Specific [place] 1.009 (1.001-1.035) Urine Protein Negative (Negative) Urine Ketones Negative (Negative) Urine Blood 1+ /uL (Negative) Urine Nitrite Negative (Negative) Urine Bilirubin Negative (Negative) Urine Urobilinogen Normal mg/dL (Negative) Urine Leukocyte Esterase 1+ /uL (Negative) Urine RBC 1 /hpf (0 - 4) Urine Microscopic WBC 2 /HPF (0-5) Urine Squamous Epithelial Cells Few /hpf (<5) Urine Bacteria Few /hpf (None Seen) Urine Mucus Few (None Seen) Urine Glucose Normal mg/dL (Normal) White Blood Count 11.0 10^3/uL (4.4-10.8) Red Blood Count 4.04 10^6/uL (4.0-5.20) Hemoglobin 12.0 g/dL (12.2-16.2) Hematocrit 35.9 % (36.0-46.0) Mean Corpuscular Volume 88.8 fL (80.0-100.0) Mean Corpuscular Hemoglobin 29.6 pg (28.0-32.0) Mean Corpuscular Hemoglobin Concent 33.4 g/dL (32.0-36.0) Red Cell Distribution Width 14.6 % (11.8-14.3) Platelet Count 253 10^3/uL (140-450) Mean Platelet Volume 9.2 fL (6.9-10.8) Neutrophils (%) (Auto) 68.5 % (37.0-80.0) Lymphocytes (%) (Auto) 22.1 % (10.0-50.0) Monocytes (%) (Auto) 7.4 % (0.0-12.0) Eosinophils (%) (Auto) 1.5 % (0.0-7.0) Basophils (%) (Auto) 0.5 % (0.0-2.0) Neutrophils # (Auto) 7.6 10 ^3/uL (1.6-8.6) Lymphocytes # (Auto) 2.4 10 ^3/uL (0.4-5.4) Monocytes # (Auto) 0.8 10 ^3/uL (0-1.3) Eosinophils # (Auto) 0.2 10 ^3/uL (0-0.8) Basophils # (Auto) 0.1 10 ^3/uL (0-0.2) Nucleated Red Blood Cells 0.0 % Sodium Level 141 mmol/L (136-145) Potassium Level 4.7 mmol/L (3.5-5.1) Chloride Level 109 mmol/L (98-107) Carbon Dioxide Level 24 mmol/L (20-31) Anion Gap 8 (5-15) Blood Urea Nitrogen 24 mg/dL (9-23) Creatinine 0.69 mg/dL (0.550-1.02) Glomerular Filtration Rate Calc 88 mL/min (>90) BUN/Creatinine Ratio 34.8 (10.0-20.0) Serum Glucose 99 mg/dL (74-106) Calcium Level 8.8 mg/dL (8.7-10.4) Total Bilirubin 0.4 mg/dL (0.2-1.0) Aspartate Amino Transferase (AST) 14 U/L (13-40) Alanine Aminotransferase (ALT) < 9 U/L (7-40) Alkaline Phosphatase 105 U/L (46-116) Total Protein 6.1 g/dL (5.7-8.2) Albumin 3.8 g/dL (3.2-4.8) Lipase 25 U/L (12-53) Other Laboratory Tests 08/07/24 04:16 Brief Hx & Hospital Course: 78-year-old female with past medical history of liver disease, hypertension, and hyperlipidemia who presented to [facility] ED with complaint of diffuse abdominal pain. Patient reports that she has been experiencing abdominal pain rating 10/10 numeric scale, associated with nausea, vomiting, loss of appetite, getting worse today that prompted this visit. Patient was seen and evaluated in the ED, laboratory data shows WBC 14.9, platelets 321, sodium 140, potassium 4.3, BUN 26, creatinine 0.83, glucose 122, calcium 9.6, lipase 25, blood pressure 109/40, heart rate 82, temperature 97.8 F, O2 saturation 98% on room air. Abdomen/pelvis CT revealing small esophageal hiatal hernia, right renal pelvic calculi, largest measuring up to 5 mm without obstruction, no obstructive uropathy. Patient was started on IV antibiotic regimen Rocephin, given morphine sulfate 2 mg IV x1, please see medication orders section in the computer. On my assessment, patient denies chest pain, no headache, no dizziness, no shortness of breaths, no diarrhea, no nausea, or vomiting at this moment, no fever, no chills. Patient was admitted for further evaluation and medical management. Able to start eating and tolerated diet had some back pain most likely from renal calculi that improved Condition at Discharge: Good Final Diagnosis/Problems List Intractable abdominal pain sepsis due to UTI hiatal hernia Nausea and vomiting Generalized weakness Discharge Disposition: Home Discharge Instruct/Medications Diet: Regular Activity: No Restrictions, As Tolerated Follow Up/Referral: PCp in 7 days Medications: ciprofloxacin Scheduled Aluminum Hydroxide-Mag Carb (Gaviscon Extra Strength), 1 CHW PO TID, (Reported) Atorvastatin Calcium (Lipitor), 1 TAB PO QPM, (Reported) Ciprofloxacin Hcl (Ciprofloxacin Hcl), 1 TAB PO BID Lisinopril (Lisinopril), 20 MG PO DAILY, (Reported) Omeprazole (Omeprazole Dr), 40 MG PO DAILY, (Reported) Pantoprazole Sodium Sesquihydr (Pantoprazole Sodium), 40 MG PO DAILY, (Reported) Sertraline Hcl (Sertraline Hcl), 25 MG PO DAILY, (Reported) Discharge Statement: "Patient was advised to return to the ER or call 911 if any headaches, dizziness, shortness of breath, chest pain, abdominal pain, bleeding, fevers, or worsening of medical condition. Patient was counseled about treatment plan, medications, possible side effects, patientverbalized understanding. All questions were answered to the best of my ability. This discharge took greater then 30 minutes in planning, reviewing documentation, counseling the patient, and discussing with other team members." ASSESSMENT ASSESSMENT Assessment UTI Date of Service: Aug 08, 2024 Billing Provider: MONY REYNA MD Common Visit Codes: 27797-PKN/OBS DISCH DAY >30min MONY REYNA MD Aug 19, 2024 06:35
== END 2024-08-08 16:36 | disposition home or self-care (01) | DRG 872 ==
LOC: ER 14:00 → OVERFLOW 22:17 → EAST 08-07 12:47
PROVIDERS: ADMIT Hospitalist; ATTEND Hospitalist
DX: A41.9 Sepsis, unspecified organism (principal); N39.0 Urinary tract infection, site not specified; K44.9 Diaphragmatic hernia without obstruction or gangrene; E78.5 Hyperlipidemia, unspecified; F17.210 Nicotine dependence, cigarettes, uncomplicated; I10 Essential (primary) hypertension; Z88.1 Allergy status to other antibiotic agents; Z88.5 Allergy status to narcotic agent
CPT/HCPCS: 36415; 74176; 80053; 81001; 83690; 85025; G0378; J2405; J2470